=== PATIENT | male | born 1945 | race Caucasian/White ===

== ENCOUNTER 2019-10-02 20:54 | Inpatient (IN) | payer OTHER ==
[~2019-10-02] VITALS: Ht 175.3 cm; Wt 117.7 kg
--- NOTE | 2019-10-02 20:55 | NUR ---
RECEIVED PT DIRECT ADMIT FROM [facility], PENDING CARDIAC CATHETERIZATION PROCEDURE. PT ARRIVED VIA [place] WITH [facility] STAFF. PT IS IN NO ACUTE DISTRESS. AAOX2 TO NAME AND , SPEECH CLEAR. FOLLOWS COMMANDS. BLL DIMINISHED. RESP EVEN AND UNLABORED ON RA. DENIES CP OR PRESSURE. SHOWING NSR/SB ON TELE #23. BOWEL SOUNDS ACTIVE, ABDOMEN SOFT, ROUND. VOIDING FREELY, INCONTINENT AT TIMES. GEN WEAKNESS. FALL PRECAUTIONS IN PLACE. IV TO LEFT AND RIGHT HAND, NO REDNESS OR SWELLING NOTED. SKIN C/D/I. ORIENTED TO ROOM AND SURROUNDINGS. YSABEL AT BEDSIDE. BED IN LOW POSITION, CALL LIGHT WITHIN REACH. ENDORSED CARE TO PRIMARY RN PROMISE.
[2019-10-02 21:11] VITALS: BP 115/63
[2019-10-02] MEDS ORDERED: VITAMIN D3 PO (21:24)
[2019-10-02] MEDS ORDERED: ASPIR 8181 MG PO (21:24)
[2019-10-02] MEDS ORDERED: NOR10 PO (21:25)
[2019-10-02] MEDS ORDERED: VITAMIN E PO (21:25)
[2019-10-02] MEDS ORDERED: MEMANTINE HCL10 MG PO (21:25)
[2019-10-02] MEDS ORDERED: ATENOLOL25 MG PO (21:26)
[2019-10-02] MEDS ORDERED: FLO4 PO (21:26)
[2019-10-02] MEDS ORDERED: LEVOTHYROXIN0.025 M2 PO (21:26)
[2019-10-02] MEDS ORDERED: ALLOPURINOL100 MG PO (21:27)
[2019-10-02] MEDS ORDERED: LIPITOR80 MG PO (21:27)
[2019-10-02] MEDS ORDERED: MAGNESIUM250 M2 PO (21:27)
--- NOTE | 2019-10-02 22:00 | NUR ---
PROCEDURE CONSENT OBTAINED FROM PT,S . SEP.
[2019-10-02] MEDS ORDERED: SYNTHROID0.05 MG PO (22:45)
[2019-10-02 23:03] LABS: BASOPHIL % 0.4 % (0-2); PLATELET COUNT 241 x10^3mcL (130-400); RED CELL DISTRIBUTION WIDTH 13.9 % (11.5-14.5)
[2019-10-02 23:07] LABS: UA SPECIFIC GRAVITY >=1.030 (1.005-1.035); microscopic required? YES; urine erythrocyte 3+ (NEGATIVE)
[2019-10-02 23:10] LABS: CALCIUM 10.4 mg/dL (8.5-10.1); CARBON DIOXIDE 28.6 mmol/L (21-32); CHLORIDE SERUM 102 mmol/L (98-107); CREATININE SERUM 1.1 mg/dL (0.7-1.3); GLUCOSE SERUM 136 mg/dL (74-106); POTASSIUM SERUM 3.5 mmol/L (3.5-5.1); SODIUM SERUM 135 mmol/L (136-145)
[2019-10-02 23:20] LABS: T3 TOTAL 1.17 ng/mL
[2019-10-02 23:24] LABS: CHOLESTEROL/HDL RATIO 3.9; MAGNESIUM 1.7 mg/dL (1.8-2.4); PHOSPHOROUS 2.9 mg/dL (2.5-4.9)
[2019-10-02 23:35] LABS: FREE T4 1.04 ng/dL (0.76-1.46); FREE THYROXINE INDEX 3.1 ug/dL (1.4-4.5); T4(THYROXINE) 8.5 ug/dL (4.7-13.3)
[2019-10-03] VITALS (10 sets, daily range): BP systolic 96–128; BP diastolic 56–65
--- NOTE | 2019-10-03 00:05 | NUR ---
PTT LEVEL SHOWS 29.7, HEPARIN BOLUS 7100UNITS GIVEN AND STARTED ON HEPARIN DRIP AT 1400UNTIS/HR PER PROTOCOL, INFUSING VIA RT HAND. NEXT PTT LEVEL DUE AT 0600. NO COMPLAINTS NOTED AT THIS TIME. DENIES CP OR ANY DISCOMFORT. CALL LIGHT WITHIN REACH. WILL CONTINUE TO MONITOR.
--- NOTE | 2019-10-03 01:23 | NUR ---
RESTING QUIETLY IN BED, WITH EYES CLOSED, APPEARS ASLEEP , EASILY AROUSABLE. RESP. EVEN AND UNLABORED. NO ACUTE DISTRESS NOTED. NPO MAINTAINED ORDERED. FOR PROCEDURE IN AM. HEPARIN DRIP INFUSING PER PROTOCOL. CALL LIGHT WITHIN REACH. WILL CONTINUE TO MONITOR.
--- NOTE | 2019-10-03 04:00 | NUR ---
HEPARIN DRIP ON HOLD AT THIS TIME PER ORDER. FOR PROCEDURE THIS AM. WILL CONTINUE TO MONITOR.
--- NOTE | 2019-10-03 05:57 | NUR ---
AFEBRILE AND VITAL SIGNS STABLE. RESP. EVEN AND UNLABORED. NO ACUTE DISTRESS NOTED. NPO MAINTAINED. DENIES CHEST PAIN OR ANY DISCOMFORT AT THIS TIME. SLEPT WELL. NO COMPLAINTS NOTED. ALISSA BODY WASH DONE. KEPT COMFORTABLE IN BED.WILL CONTINUE TO MONITOR.
--- NOTE | 2019-10-03 06:19 | NUR ---
REPORT GIVEN TO FLAVOR EXTRACTOR RN.
--- NOTE | 2019-10-03 07:05 | NUR ---
RECEIVED PT FROM CINTHYA RN. PT CURRENTLY IN PATTERN STAMPER FOR PROCEDURE.
[2019-10-03 07:17] LABS: BASOPHIL % 1.1 % (0-2); PLATELET COUNT 227 x10^3mcL (130-400); RED CELL DISTRIBUTION WIDTH 14.2 % (11.5-14.5)
[2019-10-03 07:27] LABS: CALCIUM 10.6 mg/dL (8.5-10.1); CARBON DIOXIDE 29.8 mmol/L (21-32); CHLORIDE SERUM 102 mmol/L (98-107); CREATININE SERUM 1.2 mg/dL (0.7-1.3); GLUCOSE SERUM 125 mg/dL (74-106); MAGNESIUM 1.9 mg/dL (1.8-2.4); PHOSPHOROUS 2.9 mg/dL (2.5-4.9); POTASSIUM SERUM 3.4 mmol/L (3.5-5.1); SODIUM SERUM 138 mmol/L (136-145)
--- NOTE | 2019-10-03 08:54 | NUR ---
4570 PATIENT RECEIVED TO UNIT VIA BED AND ACCOMPANIED BY ASSEMBLER GOLD FRAME RN AND TECH. PATIENT ALERT AND AWAKE AND ABLE TO MAKE ALL NEEDS KNOWN. NO SOB NOTED. RESPIRATIONS EVEN AND UNLABORED. CONTINUED TELE MONITORING ORDERED. RECEIVED ENDORSEMENT VIA PHONE. VSS. NO BLEEDING OR BRUISING NOTED TO L GROIN ACCESS SITE. MINX CLOSURE DEVICE IN PLACE. BLE PERIPHERAL PULSES NOTED WNL. COMFORT AND SAFETY MEASURES IN PLACE. CALL LIGHT WITHIN REACH. WILL CONTINUE TO MONITOR.
--- NOTE | 2019-10-03 09:00 | NUR ---
PT RESTING, SUPINE. DENIES CHEST DISCOMFORT OR SOB. SCADA OPERATOR SHOWS SINUS RHYTHM RATE 69. BP= 96/56. RESP 16 EVEN. PULSE OX 95% RA. LEFT GROIN TEGADERM IN PLACE, NO BLEEDING OR HEMATOMA NOTED. LEFT FOOT PEDAL PULSE REMAINS STRONG AND PALPABLE. SALINE LOCK RIGHT AND LEFT WRISTS INTACT. SIDE RAILS UP X4. CALL LIGHT IN REACH. WILL CONTINUE TO MONITOR. FAMILY AT BEDSIDE.
--- NOTE | 2019-10-03 09:15 | NUR ---
PT CONTINUES TO REST, NO C/O CHEST DISCOMFORT OR SOB. SUPINE IN BED. LEFT GROIN NOTED WITH TEGADERM IN PLACE. NO BLEEDING OR HEMATOMA NOTED. LEFT FOOT WARM TO TOUCH WITH PALPABLE PEDAL PULSE. HR=76 SINUS RHYTHM. TK=300/61 RIGHT UPPER ARM. RESP 16 EVEN. PULSE OX 95% RA. NO DISTRESS NOTED. WILL CONTINUE TO MONITOR.
--- NOTE | 2019-10-03 09:30 | NUR ---
PT RESTING. NO C/O CHEST PAIN OR SOB. HR=73 SINUS RHYTHM. RM=861/63 RIGHT ARM. RESP 16 EVEN. PULSE OX 95% RA. NO DISTRESS NOTED. PT REQUESTS BEDPAN. HAD FORMED SOFT BROWN STOOL. PERICARE PROVIDED. LEFT GROIN TEGADERM REMAINS DRY AND INTACT. NO BLEEDING OR HEMATOMA NOTED. LEFT LEG AND FOOT WARM TO TOUCH. STRONG PEDAL PULSE PALPABLE. WILL CONTINUE TO MONITOR. SIDE RAILS UP X4. CALL LIGHT IN REACH. FAMILY AT BEDSIDE.
--- NOTE | 2019-10-03 09:45 | NUR ---
PT RESTING. NO DISTRESS NOTED. DENIES CHEST DISCOMFORT OR SOB. HR=67 SINUS RHYTHM. TI=126/65. RESP 18 EVEN. PULSE OX 95% RA. LEFT GROIN TEGADERM INTACT. NO BLEEDING OR HEMATOMA NOTED. LEFT LEG WARM TO TOUCH. STRONG PALPABLE PULSE. DENIES NUMBNESS OR TINGLING TO EXTREMITIES. SALINE LOCKS INTACT BILATERAL WRISTS. FAMILY AT BEDSIDE. REPORT CALLED TO DUSTY DALY [address] [place] [address] BY VIVIEN DALY. WILL TRANSPORT BACK TO [address] [place] [address] SHORTLY.
--- NOTE | 2019-10-03 10:05 | NUR ---
RECEIVED PT FROM [employer] PROGRAMMER. S/P CARDIAC CATH. PT DROWSY, EASILY AROUSABLE. RESPIRATIONS E/U. LUNG SOUNDS CLR. TELE 23 SR. HR 60'S. PERIPHERAL PULSES PALPABLE BILATERALLY. TEGADERM ON L GROIN CDI. NO HEMATOMA NOTED. BED LOWEST POSITION. CALL LIGHT WITHIN REACH. FAMILY AT BEDSIDE.
--- NOTE | 2019-10-03 14:45 | NUR ---
PT MORE ALERT.ALMOST TIME FOR PT TO SIT UP.CHECKED THE GROIN AREA.NO SIGNS OF HEMATOMA.PEDAL PULSE + ON L LOWER EXTREMITY.
--- NOTE | 2019-10-03 15:00 | NUR ---
PT HAD HIS HEAD UP.NO SIGNS OF BLEEDING/HEMATOMA ON L GROIN AREA.PEDAL PULSE + ON L LOWER EXTREMITY.
--- NOTE | 2019-10-03 15:20 | NUR ---
[id number] PENDING, PT HAD A DIRECTOR VISUAL DONE NEEDS TO BE FLAT FOR 5 HOURS.
--- NOTE | 2019-10-03 18:29 | NUR ---
PATIENT RESTING IN BED WITHOUT APPARENT DISTRESS. DENIES ANY PAIN/DISCOMFORT. NO SIFNIFICANT CHANGES. FAMILY AT BEDSIDE. IV SITE TO R AND L HAND SL. BED AT LOWEST POSITION. CALL LIGHT WITHIN REACH. WILL ENDORSE CARE TO NIGHT RN.
--- NOTE | 2019-10-03 19:21 | NUR ---
RECEIVED PT FROM AM SHIFT, PT IS A/O X3, MILD CONFUSED AND FORGETFUL. LUNG SOUND CLEAR BART, NO COUGH, NO SOB. PT IS ON TELE 23, DENY ANY CHEST PAIN OR DISCOMFORT, BOWEL SOUND PRESENT ALL 4 QUADRANTS, NO DISTENITON, NO TENDER. DRESSING AT LEFT GROIN S/P RADIOLOGY SUPERVISOR. NO BLEEDING, PEDAL PULSE PRESENT BOTH FEET, NO EDEMA, IV AT LEFT HAND AND RIGHT HAND, NO LEAKING, NO INFILTRAITON. ALL ADLS ASSIST, ALL NEED MET, CALL LIGHT IN REACH, WILL CONTINUE TO MONITOR.
[2019-10-04 04:56] VITALS: BP 125/66
--- NOTE | 2019-10-04 05:07 | NUR ---
PT IS SLEEPING, AWAKE BY TOUCH, DENY ANY RESPIRATORY DISTRESS, DENY ANY PAIN OR DISCOMFORT, IV AT LEFT HAND, AND RIGHT HAND, NO LEAKING, NO INFILTRATION. ALL ADLS ASSIST, ALL NEED MET, CALL LIGHT IN REACH, WILL CONTINUE TO MONITOR.
--- NOTE | 2019-10-04 07:10 | NUR ---
RECEIVED PT FROM NIGHT RN. PT SLEEPING WITH NO APPARENT DISRESS. AWAKE BY TOUCH. DENIES PAIN/DISCOMFORT RESPIRATIONS E/U. IV SITE TO R AND L HAND CDI. BED IN LOWEST POSITION, CALL LIGHT WITHIN REACH. WILL CONTINUE TO MONITOR.
--- NOTE | 2019-10-04 07:15 | NUR ---
L GROIN NO HEMATOMA NOTED ALSO NO BLEEDING NOTED.+ BILAT PEDAL PULSES.WILL CONTINUE TO MONITOR PT.
[2019-10-04 07:30] LABS: BASOPHIL % 0.5 % (0-2); PLATELET COUNT 211 x10^3mcL (130-400); RED CELL DISTRIBUTION WIDTH 13.8 % (11.5-14.5)
[2019-10-04 07:42] LABS: CALCIUM 10.5 mg/dL (8.5-10.1); CARBON DIOXIDE 26.9 mmol/L (21-32); CHLORIDE SERUM 103 mmol/L (98-107); CREATININE SERUM 1.1 mg/dL (0.7-1.3); GLUCOSE SERUM 152 mg/dL (74-106); MAGNESIUM 1.8 mg/dL (1.8-2.4); PHOSPHOROUS 2.8 mg/dL (2.5-4.9); SODIUM SERUM 136 mmol/L (136-145)
[2019-10-04 08:01] VITALS: BP 107/63
--- NOTE | 2019-10-04 09:00 | NUR ---
PT AMBULATED TO THE BATHROOM WITH MINIMAL ASSISTANCE.HAD A LOOSE BM.
--- NOTE | 2019-10-04 12:02 | NUR ---
I HAVE REVIEWED THE DATA COLLECTION BY MALIKA BEAVER (NAME):NOAH ROMERO RN ENTERED ON (DATE/TIME):10/04/19 @ 1208 I CONCUR WITH THE DATA AND ANY EXCEPTIONS OR COMMENTS ARE LISTED BELOW:
[2019-10-04 12:26] VITALS: BP 130/68
[2019-10-04 12:39] VITALS: BP 130/67
[2019-10-04] MEDS ORDERED: BRILINTA90 M1 PO (16:59)
[2019-10-04] MEDS ORDERED: ECO81 PO (17:00)
[2019-10-04] MEDS ORDERED: TEN25 PO (17:00)
[2019-10-04] MEDS ORDERED: LIPITOR80 MG PO (17:00)
[2019-10-04] MEDS ORDERED: ZES5 PO (17:01)
[2019-10-04 17:29] VITALS: BP 132/70
--- NOTE | 2019-10-04 18:41 | NUR ---
PT DC TO HOME. IV AND MONITOR D/C. D/C INSTRUCTIONS GIVEN. PT AND VERBALIZES UNDERSTANDING. UNISHEAR OPERATOR GAVE PROCEDURAL PAPERWORK FOR CARDIAC REHAB. PRESCRIPTION SENT TO [facility] VERIFIED. WENT DOWN TO LOBBY VIA WHEELCHAIR ACCOMPANIED BY AND SIGNING TEACHER.
== END 2019-10-04 18:47 | disposition home health service (06) | DRG 250 ==
LOC: MU 20:54 → DS 20:54 → DU 23:04
PROVIDERS: ADMIT Family Medicine
PROC: 02703ZZ Dilation of Coronary Artery, One Artery, Percutaneous Approach (ICD-10-PCS; principal; 2019-10-02)
PROC: 4A023N7 Measurement of Cardiac Sampling and Pressure, Left Heart, Percutaneous Approach (ICD-10-PCS; 2019-10-02)
PROC: B2111ZZ Fluoroscopy of Multiple Coronary Arteries using Low Osmolar Contrast (ICD-10-PCS; 2019-10-02)
PROC: B2131ZZ Fluoroscopy of Multiple Coronary Artery Bypass Grafts using Low Osmolar Contrast (ICD-10-PCS; 2019-10-02)
PROC: B210YZZ Fluoroscopy of Single Coronary Artery using Other Contrast (ICD-10-PCS; 2019-10-02)
PROC: B215YZZ Fluoroscopy of Left Heart using Other Contrast (ICD-10-PCS; 2019-10-02)
DX: I25.10 Atherosclerotic heart disease of native coronary artery without angina pectoris (principal); I21.4 Non-ST elevation (NSTEMI) myocardial infarction; E03.9 Hypothyroidism, unspecified; I10 Essential (primary) hypertension; E83.52 Hypercalcemia; N40.0 Benign prostatic hyperplasia without lower urinary tract symptoms; F03.90 Unspecified dementia, unspecified severity, without behavioral disturbance, psychotic disturbance, mood disturbance, and anxiety; Z95.1 Presence of aortocoronary bypass graft
CPT/HCPCS: CLHCL; 82962; 83880; 84439; 97116-GP; C1725; C1760; C1769; C1887; G0378; J1644; J2001; J2250; J3010; J3490; J7050; Q0092; Q9967